=== PATIENT | male | born 1965 ===

== ENCOUNTER 2021-06-27 15:14 | Inpatient (IN) ==
[2021-06-27] MEDS ORDERED: GLUCAGON 1 MG VIAL IM PRN (18:48)
[2021-06-27] MEDS ORDERED: ONDANSETRON 4 MG/2 ML VIAL IV PRN (18:48)
[2021-06-27] MEDS ORDERED: DEXTROSE 50% 25 GM/50 ML VIAL IV PRN (18:48)
[2021-06-27] MEDS ORDERED: LORazepam 2 MG/1 ML VIAL IV PRN (18:48)
[2021-06-27] MEDS ORDERED: MAGNESIUM SULF RIDER 4 GM/100 ML PREMIX IV PRN (18:55)
[2021-06-27] MEDS ORDERED: MAGNESIUM SULF RIDER 2 GM/50 ML PREMIX IV PRN (18:55)
[2021-06-27] MEDS: FUROSEMIDE 40 MG/4 ML VIAL IV SCH (20:21)
[2021-06-27] MEDS: INSULIN LISPRO 100 UNIT/ML SUBCUT SCH (22:11)
[2021-06-27] MEDS ORDERED: ALBUTEROL/IPRATROPIUM 3 ML NEB RESP TX ONE (23:22)
[2021-06-28] MEDS: ALBUTEROL/IPRATROPIUM 3 ML NEB RESP TX SCH ×4 (00:46→19:40)
[2021-06-28 05:42] LABS: Basophils % 0.6 % (0.0-0.8); Eosinophils # 0.2 10*3/uL (0.0-0.87); Eosinophils % 3.3 % (0.00-10.9); Hematocrit 26.4 VOL% (42.0-52.0); Hemoglobin 9.2 GM/DL (14.0-18.0); Immature Granulocytes % 0.6 %; Immature Granulocytes Absolute 0.03 #; Lymphocytes % 20.4 % (21.2-54.2); Mean Corpuscular HGB Conc 34.8 GM/DL (32-36); Mean Corpuscular Volume 97.1 FL (87-102); Mean Platelet Volume 8.6 FL (9.6-12.0); Monocytes % 11.7 % (1.7-12.7); Neutrophils % 63.4 % (38.7-73.9); Platelet Count 135 T/CUMM (130-400); Red Blood Count 2.72 MC/CUMM (3.8-5.5); Red Cell Distribution Width 18.5 % (9.3-17.3); White Blood Count 5.1 T/CUMM (4-12)
[2021-06-28 06:15] LABS: Eosinophils 3 % (0-10); Lymphocytes 7 % (20-55); Platelet Estimate Normal; Segmented Neutrophils 84 % (50-85); Total Cells Counted 100
[2021-06-28 06:16] LABS: Hypochromasia Slight; Microcytosis Slight
[2021-06-28 06:30] LABS: Albumin 1.5 G/DL (3.4-5.0); Bilirubin,Direct 2.34 MG/DL (0.0-0.20); Bilirubin,Indirect 3.5 MG/DL (0.0-1.0); Bilirubin,Total 5.8 MG/DL (0.20-1.00); Total Protein 5.8 G/DL (6.4-8.2)
[2021-06-28 06:38] LABS: Albumin 1.5 G/DL (3.4-5.0); Bilirubin,Total 4.6 MG/DL (0.20-1.00); Calcium 7.6 MG/DL (8.5-10.1); Osmolality,Calculated 257.8 MOS/KG (273-304); Potassium 3.5 MMOL/L (3.5-5.1); Total Protein 5.7 G/DL (6.4-8.2)
[2021-06-28 07:55] LABS: INR 1.3; PT Patient Result 14.6 SECS (10.5-12.0)
[2021-06-28] MEDS: INSULIN LISPRO 100 UNIT/ML SUBCUT SCH ×4 (08:11→20:20)
[2021-06-28] MEDS ORDERED: TISSUE ADHESIVE 1 EACH APPLICATOR TOP ONE (10:21)
[2021-06-28] MEDS: MULTIVITAMIN (CENTRUM) TABLET PO SCH (10:44)
[2021-06-28] MEDS: PANTOPRAZOLE 40 MG TABLET PO SCH (10:44)
[2021-06-28] MEDS: THIAMINE 100 MG TABLET PO SCH (10:44)
[2021-06-28] MEDS: FUROSEMIDE 40 MG/4 ML VIAL IV SCH ×2 (10:44→16:39)
[2021-06-28] MEDS: FOLIC ACID 1 MG TABLET PO SCH (10:44)
[2021-06-28 13:10] LABS: Neutrophils,Peritoneal Fluid 11 %; RBC,Peritoneal Fluid 10 T/CUMM
[2021-06-28 13:45] LABS: Basophils # 0.1 10*3/uL (0.0-0.2); Basophils % 0.8 % (0.0-0.8); Eosinophils # 0.1 10*3/uL (0.0-0.87); Eosinophils % 1.9 % (0.00-10.9); Hematocrit 32.5 VOL% (42.0-52.0); Hemoglobin 11.2 GM/DL (14.0-18.0); Immature Granulocytes % 0.3 %; Immature Granulocytes Absolute 0.02 #; Lymphocytes # 1.1 10*3/uL (1.4-4.0); Lymphocytes % 17.1 % (21.2-54.2); Mean Corpuscular HGB Conc 34.5 GM/DL (32-36); Mean Corpuscular Volume 98.5 FL (87-102); Mean Platelet Volume 8.4 FL (9.6-12.0); Monocytes % 10.1 % (1.7-12.7); Neutrophils % 69.8 % (38.7-73.9); Platelet Count 167 T/CUMM (130-400); Red Cell Distribution Width 18.5 % (9.3-17.3); White Blood Count 6.4 T/CUMM (4-12)
[2021-06-28 14:11] LABS: Folate 14.28 NG/ML (5.38-24.0); Vitamin B12 1182 PG/ML (211-911)
[2021-06-28 14:46] LABS: Hepatitis B Core IgM Quant 0.07 Index; Hepatitis B Surface Ag Quant < 0.10 Index; Hepatitis B Surface Ag Result Non-Reactive (NonReactive); Hepatitis C Virus Ab Quant 0.16 Index; Hepatitis C Virus Ab Result Non-Reactive (NonReactive)
[2021-06-28 14:55] LABS: Sedimentation Rate-Westergren 90 MM/HR (0-20)
[2021-06-28] MEDS: LACTULOSE 20 GM/30 ML UDCUP PO SCH ×2 (16:40→20:48)
[2021-06-29] MEDS: ALBUTEROL/IPRATROPIUM 3 ML NEB RESP TX SCH ×2 (00:32→07:34)
[2021-06-29 05:21] LABS: Basophils % 0.7 % (0.0-0.8); Eosinophils # 0.2 10*3/uL (0.0-0.87); Hematocrit 24.6 VOL% (42.0-52.0); Immature Granulocytes % 0.7 %; Immature Granulocytes Absolute 0.03 #; Lymphocytes # 1.1 10*3/uL (1.4-4.0); Lymphocytes % 26.6 % (21.2-54.2); Mean Corpuscular HGB Conc 34.1 GM/DL (32-36); Mean Corpuscular Volume 97.6 FL (87-102); Mean Platelet Volume 8.4 FL (9.6-12.0); Monocytes % 13.8 % (1.7-12.7); Neutrophils % 54.2 % (38.7-73.9); Red Cell Distribution Width 18.5 % (9.3-17.3)
[2021-06-29 05:36] LABS: Hemoglobin 8.4 GM/DL (14.0-18.0); Platelet Count 126 T/CUMM (130-400); Red Blood Count 2.52 MC/CUMM (3.8-5.5); White Blood Count 4.3 T/CUMM (4-12)
[2021-06-29 05:50] LABS: Hypochromasia 1+; Microcytosis 1+; Platelet Estimate Normal
[2021-06-29 05:55] LABS: Albumin 1.3 G/DL (3.4-5.0); Bilirubin,Total 2.8 MG/DL (0.20-1.00); Calcium 7.3 MG/DL (8.5-10.1); Potassium 3.3 MMOL/L (3.5-5.1); Total Protein 5.4 G/DL (6.4-8.2)
[2021-06-29] MEDS: FOLIC ACID 1 MG TABLET PO SCH (08:58)
[2021-06-29] MEDS: THIAMINE 100 MG TABLET PO SCH (08:58)
[2021-06-29] MEDS: LACTULOSE 20 GM/30 ML UDCUP PO SCH ×2 (08:58→20:39)
[2021-06-29] MEDS: PANTOPRAZOLE 40 MG TABLET PO SCH (08:58)
[2021-06-29] MEDS: MULTIVITAMIN (CENTRUM) TABLET PO SCH (08:58)
[2021-06-29] MEDS: INSULIN LISPRO 100 UNIT/ML SUBCUT SCH ×4 (09:00→20:39)
[2021-06-29] MEDS: FUROSEMIDE 40 MG/4 ML VIAL IV SCH (09:03)
[2021-06-29 09:43] LABS: Hemoglobin A1 (Alkaline) 97.1 % (96.5-98.5); Hemoglobin A2 (Alkaline) 2.9 % (1.5-3.5)
[2021-06-29] MEDS: SPIRONOLACTONE 50 MG TABLET PO SCH (11:07)
[2021-06-29] MEDS: POTASSIUM CHLORIDE 20 MEQ TABLET PO PRN ×3 (18:39→22:35)
[2021-06-30] MEDS: ALBUTEROL/IPRATROPIUM 3 ML NEB RESP TX SCH ×4 (07:33→19:19)
[2021-06-30] MEDS: LACTULOSE 20 GM/30 ML UDCUP PO SCH ×2 (09:05→21:02)
[2021-06-30] MEDS: PANTOPRAZOLE 40 MG TABLET PO SCH (09:05)
[2021-06-30] MEDS: MULTIVITAMIN (CENTRUM) TABLET PO SCH (09:05)
[2021-06-30] MEDS: INSULIN LISPRO 100 UNIT/ML SUBCUT SCH ×4 (09:05→21:01)
[2021-06-30] MEDS: FOLIC ACID 1 MG TABLET PO SCH (09:05)
[2021-06-30] MEDS: SPIRONOLACTONE 50 MG TABLET PO SCH (09:05)
[2021-06-30] MEDS: THIAMINE 100 MG TABLET PO SCH (09:06)
[2021-06-30] MEDS: FUROSEMIDE 40 MG/4 ML VIAL IV SCH (10:18)
[2021-06-30 10:23] LABS: Basophils % 0.5 % (0.0-0.8); Eosinophils # 0.1 10*3/uL (0.0-0.87); Hematocrit 28.3 VOL% (42.0-52.0); Hemoglobin 9.8 GM/DL (14.0-18.0); Immature Granulocytes % 0.5 %; Immature Granulocytes Absolute 0.03 #; Lymphocytes # 0.9 10*3/uL (1.4-4.0); Lymphocytes % 16.5 % (21.2-54.2); Mean Corpuscular HGB Conc 34.6 GM/DL (32-36); Mean Corpuscular Volume 96.9 FL (87-102); Mean Platelet Volume 8.4 FL (9.6-12.0); Monocytes % 10.1 % (1.7-12.7); Neutrophils % 70.4 % (38.7-73.9); Platelet Count 141 T/CUMM (130-400); Red Blood Count 2.92 MC/CUMM (3.8-5.5); Red Cell Distribution Width 18.4 % (9.3-17.3); White Blood Count 5.6 T/CUMM (4-12)
[2021-06-30 10:43] LABS: Calcium 7.7 MG/DL (8.5-10.1); Osmolality,Calculated 260.7 MOS/KG (273-304); Potassium 3.3 MMOL/L (3.5-5.1)
[2021-06-30] MEDS: POTASSIUM CHLORIDE 20 MEQ TABLET PO PRN (11:28)
[2021-06-30] MEDS: LACTATED RINGERS 1,000 ML IV SCH (12:48)
[2021-06-30] MEDS ORDERED: propofoL 200 MG/20 ML VIAL IV ONE (13:44)
[2021-06-30] MEDS ORDERED: LIDOCAINE 2% 5 ML VIAL ONE (13:44)
[2021-07-01] MEDS: ALBUTEROL/IPRATROPIUM 3 ML NEB RESP TX SCH ×3 (01:15→14:10)
[2021-07-01 06:16] LABS: Basophils % 0.7 % (0.0-0.8); Eosinophils # 0.2 10*3/uL (0.0-0.87); Eosinophils % 2.4 % (0.00-10.9); Hematocrit 26.7 VOL% (42.0-52.0); Hemoglobin 9.2 GM/DL (14.0-18.0); Immature Granulocytes % 0.3 %; Immature Granulocytes Absolute 0.02 #; Lymphocytes # 1.1 10*3/uL (1.4-4.0); Lymphocytes % 18.4 % (21.2-54.2); Mean Corpuscular HGB Conc 34.5 GM/DL (32-36); Mean Corpuscular Volume 99.6 FL (87-102); Mean Platelet Volume 8.9 FL (9.6-12.0); Monocytes % 10.4 % (1.7-12.7); Neutrophils % 67.8 % (38.7-73.9); Platelet Count 153 T/CUMM (130-400); Red Blood Count 2.68 MC/CUMM (3.8-5.5); Red Cell Distribution Width 18.6 % (9.3-17.3); White Blood Count 6.1 T/CUMM (4-12)
[2021-07-01 06:36] LABS: Albumin 1.4 G/DL (3.4-5.0); Bilirubin,Total 3.5 MG/DL (0.20-1.00); Calcium 7.3 MG/DL (8.5-10.1); Osmolality,Calculated 265.2 MOS/KG (273-304); Potassium 2.9 MMOL/L (3.5-5.1); Total Protein 5.7 G/DL (6.4-8.2)
[2021-07-01] MEDS: POTASSIUM CHLORIDE 20 MEQ TABLET PO PRN ×3 (08:11→12:25)
[2021-07-01] MEDS: THIAMINE 100 MG TABLET PO SCH (08:11)
[2021-07-01] MEDS: LACTULOSE 20 GM/30 ML UDCUP PO SCH (08:11)
[2021-07-01] MEDS: FOLIC ACID 1 MG TABLET PO SCH (08:11)
[2021-07-01] MEDS: SPIRONOLACTONE 50 MG TABLET PO SCH (08:11)
[2021-07-01] MEDS: FUROSEMIDE 40 MG/4 ML VIAL IV SCH (08:12)
[2021-07-01] MEDS: PANTOPRAZOLE 40 MG TABLET PO SCH (08:12)
[2021-07-01] MEDS: MULTIVITAMIN (CENTRUM) TABLET PO SCH (08:12)
[2021-07-01] MEDS: INSULIN LISPRO 100 UNIT/ML SUBCUT SCH ×2 (08:13→12:02)
[2021-07-01] MEDS: LACTATED RINGERS 1,000 ML IV SCH (11:30)
[2021-07-01 11:59] VITALS: BP 118/62
== END 2021-07-01 15:40 | disposition home or self-care (01) | DRG 433 ==
LOC: EDUNIT# → EDBD → N.ED 15:14 → N.EDINP 18:48 → SUATTDRO 18:48 → N.TELEN 21:21 → N.3E 06-29 11:33
PROVIDERS: ADMIT Phlebology; ATTEND Internal Medicine Geriatric Medicine

== ENCOUNTER 2021-07-31 07:50 | Inpatient (IN) ==
[2021-07-31] MEDS ORDERED: INFLUENZA VIRUS VACCINE 0.5 ML SYRINGE IM ONE (11:19)
[2021-07-31] MEDS ORDERED: DEXTROSE 50% 25 GM/50 ML VIAL IV PRN (11:33)
[2021-07-31] MEDS ORDERED: hydrALAZINE 20 MG/1 ML VIAL IV PRN (11:33)
[2021-07-31] MEDS ORDERED: ONDANSETRON 4 MG/2 ML VIAL IV PRN (11:33)
[2021-07-31] MEDS ORDERED: GLUCAGON 1 MG VIAL IM PRN (11:33)
[2021-07-31] MEDS ORDERED: SODIUM CHLORIDE 0.9% 1,000 ML IV SCH ×2 (12:00)
[2021-07-31] MEDS: LACTULOSE 20 GM/30 ML UDCUP PO SCH ×3 (12:16→20:21)
[2021-07-31 12:17] LABS: Basophils % 0.6 % (0.0-0.8); Eosinophils # 0.1 10*3/uL (0.0-0.87); Eosinophils % 3.4 % (0.00-10.9); Hematocrit 24.4 VOL% (42.0-52.0); Hemoglobin 8.3 GM/DL (14.0-18.0); Lymphocytes # 1.1 10*3/uL (1.4-4.0); Lymphocytes % 31.8 % (21.2-54.2); Mean Corpuscular Volume 94.6 FL (87-102); Mean Platelet Volume 8.5 FL (9.6-12.0); Monocytes % 12.8 % (1.7-12.7); Neutrophils % 51.4 % (38.7-73.9); Platelet Count 132 T/CUMM (130-400); Red Blood Count 2.58 MC/CUMM (3.8-5.5); Red Cell Distribution Width 15.3 % (9.3-17.3); White Blood Count 3.6 T/CUMM (4-12)
[2021-07-31 12:45] LABS: Albumin 1.6 G/DL (3.4-5.0); Bilirubin,Direct 0.98 MG/DL (0.0-0.20); Bilirubin,Indirect 0.8 MG/DL (0.0-1.0); Bilirubin,Total 1.8 MG/DL (0.20-1.00); Total Protein 6.4 G/DL (6.4-8.2)
[2021-07-31 12:49] LABS: Albumin 1.6 G/DL (3.4-5.0); Bilirubin,Total 1.8 MG/DL (0.20-1.00); Calcium 7.6 MG/DL (8.5-10.1); Potassium 3.7 MMOL/L (3.5-5.1); Total Protein 6.3 G/DL (6.4-8.2)
[2021-07-31 13:22] LABS: Bilirubin,Urine Negative (Negative); Blood, Urine Moderate mg/dL (Negative); Glucose,Urine (UA) Negative (Negative); Hyaline Casts,Urine 4 /LPF (0-3); Ketones,Urine Negative (Negative); Mucus,Urine Occasional /LPF (Occasional); Nitrite,Urine Negative (Negative); Protein,Urine 30 MG/DL; RBC,Urine 83 /HPF (0-4); Urine Appearance CLEAR (Clear); Urine Color Amber (Yellow); Urine Specific Gravity 1.025 (1.001-1.035); Urine Urobilinogen < 2.0 EU/DL (0.2-1.0)
[2021-07-31] MEDS: ALBUTEROL/IPRATROPIUM 3 ML NEB RESP TX SCH ×2 (13:40→20:21)
[2021-07-31] MEDS: metroNIDAZOLE INJ 500 MG/100 ML PREMIX IV SCH ×2 (13:46→20:21)
[2021-08-01] MEDS: LACTULOSE 20 GM/30 ML UDCUP PO SCH ×6 (00:35→21:11)
[2021-08-01] MEDS: ALBUTEROL/IPRATROPIUM 3 ML NEB RESP TX SCH ×4 (01:45→18:59)
[2021-08-01] MEDS: metroNIDAZOLE INJ 500 MG/100 ML PREMIX IV SCH ×3 (05:42→21:12)
[2021-08-01 05:56] LABS: Basophils % 0.6 % (0.0-0.8); Eosinophils # 0.2 10*3/uL (0.0-0.87); Eosinophils % 3.5 % (0.00-10.9); Hematocrit 26.2 VOL% (42.0-52.0); Immature Granulocytes % 0.2 %; Immature Granulocytes Absolute 0.01 #; Lymphocytes # 2.1 10*3/uL (1.4-4.0); Mean Corpuscular HGB Conc 34.4 GM/DL (32-36); Mean Corpuscular Volume 94.2 FL (87-102); Mean Platelet Volume 8.7 FL (9.6-12.0); Monocytes % 10.1 % (1.7-12.7); Neutrophils % 45.6 % (38.7-73.9); Platelet Count 179 T/CUMM (130-400); Red Blood Count 2.78 MC/CUMM (3.8-5.5); Red Cell Distribution Width 15.1 % (9.3-17.3); White Blood Count 5.1 T/CUMM (4-12)
[2021-08-01 06:01] LABS: INR 1.3; PT Patient Result 14.6 SECS (10.5-12.0); Partial Thromboplastin Time 43.5 SECS (23.9-33.8)
[2021-08-01 06:09] LABS: Calcium 8.1 MG/DL (8.5-10.1); Osmolality,Calculated 274.7 MOS/KG (273-304); Potassium 3.9 MMOL/L (3.5-5.1)
[2021-08-01] MEDS: THIAMINE 100 MG TABLET PO SCH (09:23)
[2021-08-01] MEDS: FOLIC ACID 1 MG TABLET PO SCH (09:23)
[2021-08-01] MEDS: MULTIVITAMIN (CENTRUM) TABLET PO SCH (09:23)
[2021-08-01] MEDS: PANTOPRAZOLE 40 MG VIAL IV SCH (09:25)
[2021-08-01] MEDS: RIFAXIMIN 550 MG TABLET PO SCH (21:11)
[2021-08-02] MEDS: LACTULOSE 20 GM/30 ML UDCUP PO SCH ×7 (00:26→21:19)
[2021-08-02] MEDS: ALBUTEROL/IPRATROPIUM 3 ML NEB RESP TX SCH ×4 (00:38→19:11)
[2021-08-02] MEDS: metroNIDAZOLE INJ 500 MG/100 ML PREMIX IV SCH (06:10)
[2021-08-02 06:14] LABS: Basophils % 0.5 % (0.0-0.8); Eosinophils # 0.2 10*3/uL (0.0-0.87); Eosinophils % 3.8 % (0.00-10.9); Hematocrit 22.9 VOL% (42.0-52.0); Hemoglobin 7.8 GM/DL (14.0-18.0); Immature Granulocytes % 0.3 %; Immature Granulocytes Absolute 0.01 #; Lymphocytes # 1.2 10*3/uL (1.4-4.0); Lymphocytes % 30.3 % (21.2-54.2); Mean Corpuscular HGB Conc 34.1 GM/DL (32-36); Mean Corpuscular Volume 93.9 FL (87-102); Mean Platelet Volume 8.5 FL (9.6-12.0); Monocytes % 12.3 % (1.7-12.7); Neutrophils % 52.8 % (38.7-73.9); Platelet Count 134 T/CUMM (130-400); Red Blood Count 2.44 MC/CUMM (3.8-5.5); Red Cell Distribution Width 15.2 % (9.3-17.3); White Blood Count 3.9 T/CUMM (4-12)
[2021-08-02 06:30] LABS: Calcium 7.6 MG/DL (8.5-10.1); Osmolality,Calculated 268.1 MOS/KG (273-304); Potassium 3.2 MMOL/L (3.5-5.1)
[2021-08-02] MEDS ORDERED: POTASSIUM CHLORIDE RIDER 20 MEQ/100 ML PREMIX IV PRN (08:05)
[2021-08-02] MEDS: THIAMINE 100 MG TABLET PO SCH (10:40)
[2021-08-02] MEDS: FUROSEMIDE 20 MG TABLET PO SCH (10:40)
[2021-08-02] MEDS: SPIRONOLACTONE 50 MG TABLET PO SCH (10:40)
[2021-08-02] MEDS: MULTIVITAMIN (CENTRUM) TABLET PO SCH (10:40)
[2021-08-02] MEDS: MONTELUKAST 10 MG TABLET PO SCH (10:40)
[2021-08-02] MEDS: RIFAXIMIN 550 MG TABLET PO SCH ×2 (10:40→21:19)
[2021-08-02] MEDS: FOLIC ACID 1 MG TABLET PO SCH (10:41)
[2021-08-02] MEDS: POTASSIUM CHLORIDE RIDER 10 MEQ/100 ML PREMIX IV PRN ×4 (10:41→21:19)
[2021-08-02] MEDS: PANTOPRAZOLE 40 MG VIAL IV SCH (10:41)
[2021-08-03] MEDS: ALBUTEROL/IPRATROPIUM 3 ML NEB RESP TX SCH ×4 (00:32→19:25)
[2021-08-03] MEDS: LACTULOSE 20 GM/30 ML UDCUP PO SCH ×5 (00:50→16:26)
[2021-08-03] MEDS: PANTOPRAZOLE 40 MG TABLET PO SCH (05:35)
[2021-08-03] MEDS: SPIRONOLACTONE 50 MG TABLET PO SCH (08:13)
[2021-08-03] MEDS: FOLIC ACID 1 MG TABLET PO SCH (08:13)
[2021-08-03] MEDS: THIAMINE 100 MG TABLET PO SCH (08:13)
[2021-08-03] MEDS: MULTIVITAMIN (CENTRUM) TABLET PO SCH (08:13)
[2021-08-03] MEDS: FUROSEMIDE 20 MG TABLET PO SCH (08:13)
[2021-08-03] MEDS: RIFAXIMIN 550 MG TABLET PO SCH ×2 (08:14→22:30)
[2021-08-03] MEDS: MONTELUKAST 10 MG TABLET PO SCH (08:14)
[2021-08-03 09:14] LABS: Albumin 1.4 G/DL (3.4-5.0); Bilirubin,Total 1.7 MG/DL (0.20-1.00); Calcium 7.3 MG/DL (8.5-10.1); Total Protein 5.8 G/DL (6.4-8.2)
[2021-08-03 09:19] LABS: Basophils % 0.4 % (0.0-0.8); Eosinophils # 0.1 10*3/uL (0.0-0.87); Eosinophils % 1.1 % (0.00-10.9); Hematocrit 22.4 VOL% (42.0-52.0); Hemoglobin 7.7 GM/DL (14.0-18.0); Immature Granulocytes % 0.4 %; Immature Granulocytes Absolute 0.02 #; Lymphocytes # 1.5 10*3/uL (1.4-4.0); Lymphocytes % 27.9 % (21.2-54.2); Mean Corpuscular HGB Conc 34.4 GM/DL (32-36); Mean Corpuscular Volume 95.3 FL (87-102); Neutrophils % 59.2 % (38.7-73.9); Platelet Count 124 T/CUMM (130-400); Red Blood Count 2.35 MC/CUMM (3.8-5.5); Red Cell Distribution Width 15.2 % (9.3-17.3); White Blood Count 5.3 T/CUMM (4-12)
[2021-08-03 09:47] LABS: Target Cells Slight
[2021-08-03 09:49] LABS: Platelet Estimate Adequate
[2021-08-03] MEDS: LEVOFLOXACIN INJ 500 MG/100 ML PREMIX IV SCH (12:10)
[2021-08-03] MEDS ORDERED: LACTULOSE 20 GM/30 ML UDCUP PO SCH (21:00)
[2021-08-04] MEDS: ALBUTEROL/IPRATROPIUM 3 ML NEB RESP TX SCH ×3 (01:00→13:03)
[2021-08-04 05:25] LABS: Basophils % 0.5 % (0.0-0.8); Eosinophils # 0.2 10*3/uL (0.0-0.87); Eosinophils % 4.1 % (0.00-10.9); Hematocrit 21.4 VOL% (42.0-52.0); Hemoglobin 7.3 GM/DL (14.0-18.0); Immature Granulocytes % 0.5 %; Immature Granulocytes Absolute 0.02 #; Lymphocytes # 1.1 10*3/uL (1.4-4.0); Lymphocytes % 25.7 % (21.2-54.2); Mean Corpuscular HGB Conc 34.1 GM/DL (32-36); Mean Corpuscular Volume 93.4 FL (87-102); Mean Platelet Volume 8.5 FL (9.6-12.0); Monocytes % 11.6 % (1.7-12.7); Neutrophils % 57.6 % (38.7-73.9); Platelet Count 117 T/CUMM (130-400); Red Blood Count 2.29 MC/CUMM (3.8-5.5); White Blood Count 4.1 T/CUMM (4-12)
[2021-08-04 05:41] LABS: Albumin 1.3 G/DL (3.4-5.0); Bilirubin,Total 1.4 MG/DL (0.20-1.00); Calcium 7.1 MG/DL (8.5-10.1); Osmolality,Calculated 267.1 MOS/KG (273-304); Potassium 3.6 MMOL/L (3.5-5.1); Total Protein 5.4 G/DL (6.4-8.2)
[2021-08-04] MEDS: PANTOPRAZOLE 40 MG TABLET PO SCH (06:26)
[2021-08-04] MEDS: SPIRONOLACTONE 50 MG TABLET PO SCH (08:40)
[2021-08-04] MEDS: MULTIVITAMIN (CENTRUM) TABLET PO SCH (08:41)
[2021-08-04] MEDS: RIFAXIMIN 550 MG TABLET PO SCH (08:42)
[2021-08-04] MEDS: MONTELUKAST 10 MG TABLET PO SCH (08:42)
[2021-08-04] MEDS: THIAMINE 100 MG TABLET PO SCH (08:43)
[2021-08-04] MEDS: FOLIC ACID 1 MG TABLET PO SCH (08:43)
[2021-08-04] MEDS: FUROSEMIDE 20 MG TABLET PO SCH (08:44)
[2021-08-04 08:51] LABS: INR 1.5; PT Patient Result 15.8 SECS (10.5-12.0)
[2021-08-04] MEDS ORDERED: LACTULOSE 20 GM/30 ML UDCUP PO SCH (09:00)
[2021-08-04 09:39] LABS: Partial Thromboplastin Time 45.2 SECS (23.9-33.8)
[2021-08-04 11:03] VITALS: BP 116/62
[2021-08-04] MEDS: LEVOFLOXACIN INJ 500 MG/100 ML PREMIX IV SCH (11:47)
== END 2021-08-04 15:47 | disposition home or self-care (01) | DRG 432 ==
LOC: N.5E 10:33 → SUATTDRO 10:33 → N.5E 11:20
PROVIDERS: ADMIT Internal Medicine; ATTEND Hospitalist

== ENCOUNTER 2022-01-16 06:02 | Inpatient (IN) ==
[2022-01-16 07:19] LABS: INR 1.2; Partial Thromboplastin Time 33.6 SECS (23.8-32.1)
[2022-01-16] MEDS ORDERED: HYDROmorphone 1 MG/1 ML SYRINGE IV STA (08:59)
[2022-01-16] MEDS ORDERED: ALUMINUM/MAGNES/SIMETH MAX STR 30 ML UDCUP PO PRN (09:03)
[2022-01-16] MEDS ORDERED: GLUCAGON 1 MG VIAL IM PRN (09:03)
[2022-01-16] MEDS ORDERED: hydrALAZINE 20 MG/1 ML VIAL IV PRN (09:03)
[2022-01-16] MEDS ORDERED: DOCUSATE SODIUM 100 MG CAPSULE PO PRN (09:03)
[2022-01-16] MEDS ORDERED: DEXTROSE 10% 250 ML BAG IV PRN (09:10)
[2022-01-16] MEDS ORDERED: LACTULOSE 20 GM/30 ML UDCUP PO PRN (09:13)
[2022-01-16] MEDS ORDERED: POLYVINYL ALCOHOL 1.4% OPH SOLN 15 ML BOTTLE BOTH EYES PRN (09:13)
[2022-01-16] MEDS ORDERED: ALBUTEROL 2.5 MG/3 ML NEB RESP TX PRN (09:13)
[2022-01-16] MEDS ORDERED: MIDAZOLAM 2 MG/2 ML VIAL ONE (09:30)
[2022-01-16] MEDS ORDERED: SEVOFLURANE 1 UNIT/15 MINUTE INH ONE (09:30)
[2022-01-16] MEDS ORDERED: propofoL 200 MG/20 ML VIAL IV ONE (09:30)
[2022-01-16] MEDS ORDERED: LIDOCAINE 2% 5 ML VIAL ONE (09:30)
[2022-01-16] MEDS ORDERED: fentaNYL 250 MCG/5 ML VIAL ONE (09:30)
[2022-01-16] MEDS ORDERED: HYDROmorphone 1 MG/1 ML SYRINGE IV ONE (09:30)
[2022-01-16] MEDS ORDERED: ROCURONIUM 50 MG/5 ML VIAL IV ONE ×2 (09:30→09:46)
[2022-01-16] MEDS ORDERED: SUCCINYLCHOLINE 200 MG/10 ML VIAL ONE ×2 (09:30→09:46)
[2022-01-16] MEDS ORDERED: LIDOCAINE 1% 5 ML VIAL ONE (09:46)
[2022-01-16] MEDS ORDERED: ROPIVACAINE 0.5% 30 ML VIAL ONE (09:46)
[2022-01-16] MEDS ORDERED: DEXAMETHASONE 4 MG/1 ML VIAL ONE (09:46)
[2022-01-16] MEDS ORDERED: BUPIVACAINE MPF 0.25% 30 ML VIAL ONE (09:56)
[2022-01-16] MEDS ORDERED: TISSUE ADHESIVE 1 EACH APPLICATOR TOP ONE (09:56)
[2022-01-16] MEDS ORDERED: LIDOCAINE 1%/EPI INJ 20 ML VIAL ONE (09:57)
[2022-01-16] MEDS ORDERED: LACTATED RINGERS 1,000 ML IV SCH (10:30)
[2022-01-16] MEDS ORDERED: PHENYLEPHRINE 1 MG/10 ML SYRINGE IV ONE (11:14)
[2022-01-16] MEDS ORDERED: NEOSTIGMINE 10 MG/10 ML VIAL ONE (11:25)
[2022-01-16] MEDS ORDERED: GLYCOPYRROLATE 0.4 MG/2 ML VIAL ONE (11:25)
[2022-01-16] MEDS ORDERED: LACTATED RINGERS 1,000 ML IV ONE (11:28)
[2022-01-16] MEDS ORDERED: SUGAMMADEX 200 MG/2 ML VIAL IV ONE (11:40)
[2022-01-16] MEDS ORDERED: HYDROmorphone 1 MG/1 ML SYRINGE IV PRN (12:34)
[2022-01-16] MEDS ORDERED: BISACODYL 5 MG TABLET PO PRN (12:34)
[2022-01-16] MEDS: INSULIN LISPRO 100 UNIT/ML SUBCUT SCH ×3 (13:33→20:40)
[2022-01-16] MEDS: LACTATED RINGERS 1,000 ML IV SCH ×2 (13:49→18:27)
[2022-01-16] MEDS: KETOROLAC 15 MG/1 ML VIAL IV SCH ×2 (13:49→20:39)
[2022-01-17] MEDS: LACTATED RINGERS 1,000 ML IV SCH ×4 (02:25→21:15)
[2022-01-17] MEDS: KETOROLAC 15 MG/1 ML VIAL IV SCH ×4 (02:30→21:24)
[2022-01-17 05:42] LABS: Basophils % 0.1 % (0.0-0.8); Eosinophils % 0.1 % (0.00-10.9); Hematocrit 21.1 VOL% (42.0-52.0); Hemoglobin 6.5 GM/DL (14.0-18.0); Immature Granulocytes % 0.3 %; Immature Granulocytes Absolute 0.02 #; Lymphocytes % 13.7 % (21.2-54.2); Mean Corpuscular HGB Conc 30.8 GM/DL (32-36); Mean Corpuscular Volume 80.2 FL (87-102); Mean Platelet Volume 8.6 FL (9.6-12.0); Monocytes % 7.5 % (1.7-12.7); Neutrophils % 78.3 % (38.7-73.9); Platelet Count 176 T/CUMM (130-400); Red Blood Count 2.63 MC/CUMM (3.8-5.5); Red Cell Distribution Width 15.9 % (9.3-17.3); White Blood Count 7.2 T/CUMM (4-12)
[2022-01-17 06:04] LABS: Risk Ratio 2.21; VLDL Cholesterol 7.6 MG/DL
[2022-01-17 06:35] LABS: Albumin 2.4 G/DL (3.4-5.0); Bilirubin,Total 0.9 MG/DL (0.20-1.00); Calcium 7.6 MG/DL (8.5-10.1); Osmolality,Calculated 275.7 MOS/KG (273-304); Potassium 3.6 MMOL/L (3.5-5.1); Total Protein 6.4 G/DL (6.4-8.2)
[2022-01-17] MEDS: INSULIN LISPRO 100 UNIT/ML SUBCUT SCH ×4 (07:26→21:12)
[2022-01-17] MEDS: SPIRONOLACTONE 50 MG TABLET PO SCH (08:28)
[2022-01-17] MEDS: METOPROLOL TARTRATE 25 MG TABLET PO SCH (08:28)
[2022-01-17] MEDS: MONTELUKAST 10 MG TABLET PO SCH (08:28)
[2022-01-17] MEDS: FUROSEMIDE 20 MG TABLET PO SCH (08:28)
[2022-01-17] MEDS: MULTIVITAMIN (CENTRUM) TABLET PO SCH (08:28)
[2022-01-17] MEDS: lisinopriL 10 MG TABLET PO SCH (08:28)
[2022-01-17] MEDS ORDERED: SODIUM CHLORIDE 0.9% 1,000 ML IV PRN (08:49)
[2022-01-17] MEDS ORDERED: PANTOPRAZOLE 40 MG TABLET PO SCH (09:00)
[2022-01-17] MEDS ORDERED: FUROSEMIDE 40 MG/4 ML VIAL IV PRN (12:48)
[2022-01-17 13:10] LABS: % Iron Saturation 5.3 % (18-50); Ferritin 10.5 ng/mL (26-388)
[2022-01-17] MEDS: ONDANSETRON 4 MG/2 ML VIAL IV PRN (21:27)
[2022-01-18] MEDS: LACTATED RINGERS 1,000 ML IV SCH ×2 (02:08→14:40)
[2022-01-18] MEDS: ONDANSETRON 4 MG/2 ML VIAL IV PRN (02:13)
[2022-01-18] MEDS: KETOROLAC 15 MG/1 ML VIAL IV SCH (02:16)
[2022-01-18 04:52] LABS: Basophils % 0.3 % (0.0-0.8); Eosinophils % 0.6 % (0.00-10.9); Hematocrit 28.6 VOL% (42.0-52.0); Hemoglobin 8.9 GM/DL (14.0-18.0); Immature Granulocytes % 0.6 %; Immature Granulocytes Absolute 0.02 #; Lymphocytes # 0.5 10*3/uL (1.4-4.0); Lymphocytes % 16.1 % (21.2-54.2); Mean Corpuscular HGB Conc 31.1 GM/DL (32-36); Mean Corpuscular Volume 82.9 FL (87-102); Mean Platelet Volume 9.1 FL (9.6-12.0); Monocytes % 19.3 % (1.7-12.7); Neutrophils % 63.1 % (38.7-73.9); Platelet Count 154 T/CUMM (130-400); Red Blood Count 3.45 MC/CUMM (3.8-5.5); Red Cell Distribution Width 16.3 % (9.3-17.3); White Blood Count 3.2 T/CUMM (4-12)
[2022-01-18 05:00] LABS: Calcium 8.1 MG/DL (8.5-10.1); Osmolality,Calculated 278.8 MOS/KG (273-304); Potassium 3.8 MMOL/L (3.5-5.1)
[2022-01-18 05:08] LABS: Band Neutrophils 8 % (0-10); Hypochromia 1+; Lymphocytes 19 % (20-55); Nucleated Red Blood Cells 1 (0-5); Segmented Neutrophils 58 % (50-85); Total Cells Counted 100
[2022-01-18 05:09] LABS: Microcytosis 1+; Platelet Estimate Adequate; Polychromasia Slight
[2022-01-18] MEDS: INSULIN LISPRO 100 UNIT/ML SUBCUT SCH ×4 (06:48→20:44)
[2022-01-18] MEDS: PANTOPRAZOLE 40 MG VIAL IV SCH (08:12)
[2022-01-18] MEDS: MONTELUKAST 10 MG TABLET PO SCH (08:13)
[2022-01-18] MEDS: MULTIVITAMIN (CENTRUM) TABLET PO SCH (08:13)
[2022-01-18] MEDS: METOPROLOL TARTRATE 25 MG TABLET PO SCH (08:13)
[2022-01-18] MEDS ORDERED: ALBUTEROL/IPRATROPIUM 3 ML NEB RESP TX PRN (08:36)
[2022-01-18] MEDS: FERRIC GLUCONATE COMPLEX 125 MG in SODIUM CHLORIDE 0.9% 100 ML IV SCH (09:53)
[2022-01-19] MEDS: LACTATED RINGERS 1,000 ML IV SCH ×2 (02:55→11:55)
[2022-01-19 07:00] LABS: Calcium 7.6 MG/DL (8.5-10.1); Osmolality,Calculated 281.8 MOS/KG (273-304); Potassium 3.5 MMOL/L (3.5-5.1)
[2022-01-19] MEDS: INSULIN LISPRO 100 UNIT/ML SUBCUT SCH ×4 (07:28→21:27)
[2022-01-19 08:19] LABS: Basophils % 0.4 % (0.0-0.8); Eosinophils # 0.2 10*3/uL (0.0-0.87); Eosinophils % 3.1 % (0.00-10.9); Hematocrit 26.8 VOL% (42.0-52.0); Hemoglobin 8.5 GM/DL (14.0-18.0); Immature Granulocytes % 0.8 %; Immature Granulocytes Absolute 0.04 #; Lymphocytes # 0.9 10*3/uL (1.4-4.0); Lymphocytes % 16.7 % (21.2-54.2); Mean Corpuscular HGB Conc 31.7 GM/DL (32-36); Mean Corpuscular Volume 81.2 FL (87-102); Mean Platelet Volume 9.1 FL (9.6-12.0); Monocytes % 19.8 % (1.7-12.7); Neutrophils % 59.2 % (38.7-73.9); Platelet Count 149 T/CUMM (130-400); Red Cell Distribution Width 16.5 % (9.3-17.3); White Blood Count 5.1 T/CUMM (4-12)
[2022-01-19] MEDS: MULTIVITAMIN (CENTRUM) TABLET PO SCH (08:19)
[2022-01-19] MEDS: PANTOPRAZOLE 40 MG VIAL IV SCH (08:19)
[2022-01-19] MEDS: MONTELUKAST 10 MG TABLET PO SCH (08:19)
[2022-01-19] MEDS: METOPROLOL TARTRATE 25 MG TABLET PO SCH (08:19)
[2022-01-19] MEDS: FERRIC GLUCONATE COMPLEX 125 MG in SODIUM CHLORIDE 0.9% 100 ML IV SCH (08:20)
[2022-01-19 08:38] LABS: Band Neutrophils 3 % (0-10); Eosinophils 4 % (0-10); Hypochromia 1+; Lymphocytes 14 % (20-55); Microcytosis 1+; Platelet Estimate Adequate; Segmented Neutrophils 61 % (50-85); Total Cells Counted 100
[2022-01-19] MEDS: lisinopriL 10 MG TABLET PO SCH (10:49)
[2022-01-19] MEDS: SPIRONOLACTONE 50 MG TABLET PO SCH (10:49)
[2022-01-19] MEDS: FUROSEMIDE 20 MG TABLET PO SCH (10:49)
[2022-01-20] MEDS: LACTATED RINGERS 1,000 ML IV SCH ×2 (04:30→23:18)
[2022-01-20 05:27] LABS: Basophils % 0.5 % (0.0-0.8); Eosinophils # 0.1 10*3/uL (0.0-0.87); Eosinophils % 3.1 % (0.00-10.9); Hematocrit 27.2 VOL% (42.0-52.0); Hemoglobin 8.5 GM/DL (14.0-18.0); Immature Granulocytes % 1.2 %; Immature Granulocytes Absolute 0.05 #; Lymphocytes # 0.8 10*3/uL (1.4-4.0); Lymphocytes % 19.5 % (21.2-54.2); Mean Corpuscular HGB Conc 31.3 GM/DL (32-36); Mean Corpuscular Volume 80.7 FL (87-102); Mean Platelet Volume 8.6 FL (9.6-12.0); Monocytes % 20.7 % (1.7-12.7); Platelet Count 148 T/CUMM (130-400); Red Blood Count 3.37 MC/CUMM (3.8-5.5); Red Cell Distribution Width 16.7 % (9.3-17.3); White Blood Count 4.2 T/CUMM (4-12)
[2022-01-20 05:42] LABS: Calcium 7.4 MG/DL (8.5-10.1); Osmolality,Calculated 279.7 MOS/KG (273-304); Potassium 3.4 MMOL/L (3.5-5.1)
[2022-01-20 05:52] LABS: Band Neutrophils 2 % (0-10); Eosinophils 2 % (0-10); Hypochromia 1+; Lymphocytes 10 % (20-55); Microcytosis 1+; Platelet Estimate Adequate; Segmented Neutrophils 67 % (50-85); Total Cells Counted 100
[2022-01-20] MEDS: INSULIN LISPRO 100 UNIT/ML SUBCUT SCH ×4 (07:11→20:25)
[2022-01-20] MEDS: MULTIVITAMIN (CENTRUM) TABLET PO SCH (09:21)
[2022-01-20] MEDS: lisinopriL 10 MG TABLET PO SCH (09:26)
[2022-01-20] MEDS: METOPROLOL TARTRATE 25 MG TABLET PO SCH (09:26)
[2022-01-20] MEDS: MONTELUKAST 10 MG TABLET PO SCH (09:26)
[2022-01-20] MEDS: FUROSEMIDE 40 MG TABLET PO SCH (09:26)
[2022-01-20] MEDS: SPIRONOLACTONE 100 MG TABLET PO SCH (09:26)
[2022-01-20] MEDS: PANTOPRAZOLE 40 MG VIAL IV SCH (09:32)
[2022-01-20] MEDS: FERRIC GLUCONATE COMPLEX 125 MG in SODIUM CHLORIDE 0.9% 100 ML IV SCH (09:33)
[2022-01-20] MEDS: POTASSIUM CHLORIDE RIDER 10 MEQ/100 ML PREMIX IV SCH ×2 (11:39→12:40)
[2022-01-20] MEDS ORDERED: POTASSIUM CHLORIDE RIDER 10 MEQ/100 ML PREMIX IV ONE (15:00)
[2022-01-20] MEDS: HEPARIN 5,000 UNIT/1 ML VIAL SUBCUT SCH (15:10)
[2022-01-20] MEDS ORDERED: DEXTROSE 10% 1,000 ML IV PRN (17:00)
[2022-01-20] MEDS ORDERED: ZINC/COPPER/MANGANESE/SELENIUM 1 ML, MULTIVITAMIN INJ 10 ML in AMINO ACIDS/DEXT/LYTES 5... IV SCH (17:00)
[2022-01-21] MEDS: HEPARIN 5,000 UNIT/1 ML VIAL SUBCUT SCH (06:08)
[2022-01-21] MEDS: LACTATED RINGERS 1,000 ML IV SCH ×2 (06:29→11:57)
[2022-01-21 06:47] LABS: Basophils % 0.7 % (0.0-0.8); Eosinophils # 0.1 10*3/uL (0.0-0.87); Eosinophils % 2.9 % (0.00-10.9); Hematocrit 28.1 VOL% (42.0-52.0); Hemoglobin 8.8 GM/DL (14.0-18.0); Immature Granulocytes % 1.2 %; Immature Granulocytes Absolute 0.05 #; Lymphocytes # 0.9 10*3/uL (1.4-4.0); Lymphocytes % 20.7 % (21.2-54.2); Mean Corpuscular HGB Conc 31.3 GM/DL (32-36); Mean Corpuscular Volume 81.9 FL (87-102); Mean Platelet Volume 8.6 FL (9.6-12.0); Monocytes % 23.3 % (1.7-12.7); Neutrophils % 51.2 % (38.7-73.9); Platelet Count 152 T/CUMM (130-400); Red Blood Count 3.43 MC/CUMM (3.8-5.5); Red Cell Distribution Width 16.9 % (9.3-17.3); White Blood Count 4.2 T/CUMM (4-12)
[2022-01-21 07:14] LABS: Calcium 7.5 MG/DL (8.5-10.1); Potassium 3.4 MMOL/L (3.5-5.1)
[2022-01-21 07:20] LABS: Osmolality,Calculated 276.7 MOS/KG (273-304)
[2022-01-21] MEDS: INSULIN LISPRO 100 UNIT/ML SUBCUT SCH ×4 (07:40→20:59)
[2022-01-21] MEDS: MULTIVITAMIN (CENTRUM) TABLET PO SCH (09:26)
[2022-01-21] MEDS: POTASSIUM CHLORIDE RIDER 10 MEQ/100 ML PREMIX IV SCH ×2 (09:30→11:57)
[2022-01-21] MEDS: PANTOPRAZOLE 40 MG VIAL IV SCH (09:30)
[2022-01-21] MEDS: lisinopriL 10 MG TABLET PO SCH (09:31)
[2022-01-21] MEDS: METOPROLOL TARTRATE 25 MG TABLET PO SCH (09:31)
[2022-01-21] MEDS: SPIRONOLACTONE 100 MG TABLET PO SCH (09:31)
[2022-01-21] MEDS: MONTELUKAST 10 MG TABLET PO SCH (09:31)
[2022-01-21] MEDS: FUROSEMIDE 40 MG TABLET PO SCH (09:31)
[2022-01-21 10:31] LABS: Band Neutrophils 1 % (0-10); Eosinophils 1 % (0-10); Hypochromia Slight; Lymphocytes 15 % (20-55); Microcytosis Slight; Platelet Estimate Adequate; Polychromasia Slight; Segmented Neutrophils 58 % (50-85); Total Cells Counted 100
[2022-01-21] MEDS: FERRIC GLUCONATE COMPLEX 125 MG in SODIUM CHLORIDE 0.9% 100 ML IV SCH (13:23)
[2022-01-21] MEDS: FAT EMULSION 20% 250 ML IV SCH (15:45)
[2022-01-21] MEDS: ZINC/COPPER/MANGANESE/SELENIUM 1 ML, MULTIVITAMIN INJ 10 ML in AMINO ACIDS/DEXT/LYTES 5... IV SCH (17:40)
[2022-01-22 06:35] LABS: Basophils % 0.3 % (0.0-0.8); Eosinophils # 0.1 10*3/uL (0.0-0.87); Eosinophils % 3.8 % (0.00-10.9); Hematocrit 26.1 VOL% (42.0-52.0); Hemoglobin 8.2 GM/DL (14.0-18.0); Immature Granulocytes % 3.2 %; Immature Granulocytes Absolute 0.12 #; Lymphocytes % 28.1 % (21.2-54.2); Mean Corpuscular HGB Conc 31.4 GM/DL (32-36); Mean Corpuscular Volume 82.3 FL (87-102); Mean Platelet Volume 8.4 FL (9.6-12.0); Monocytes % 18.6 % (1.7-12.7); Platelet Count 126 T/CUMM (130-400); Red Blood Count 3.17 MC/CUMM (3.8-5.5); Red Cell Distribution Width 16.9 % (9.3-17.3); White Blood Count 3.7 T/CUMM (4-12)
[2022-01-22 06:50] LABS: Calcium 7.5 MG/DL (8.5-10.1); Osmolality,Calculated 275.7 MOS/KG (273-304); Potassium 3.4 MMOL/L (3.5-5.1)
[2022-01-22] MEDS: INSULIN LISPRO 100 UNIT/ML SUBCUT SCH ×4 (07:47→20:55)
[2022-01-22 08:44] LABS: Band Neutrophils 1 % (0-10); Eosinophils 2 % (0-10); Lymphocytes 18 % (20-55); Metamyelocytes 1 %; Myelocytes 1 %; Segmented Neutrophils 58 % (50-85); Total Cells Counted 100
[2022-01-22 08:45] LABS: Anisocytosis Slight; Atypical Lymphocytes Few; Hypochromia 1+; Platelet Estimate Adequate; Polychromasia Slight; Target Cells Few; Tear Drop Cells Few
[2022-01-22] MEDS: lisinopriL 10 MG TABLET PO SCH (09:04)
[2022-01-22] MEDS: SPIRONOLACTONE 100 MG TABLET PO SCH (09:04)
[2022-01-22] MEDS: METOPROLOL TARTRATE 25 MG TABLET PO SCH (09:04)
[2022-01-22] MEDS: MONTELUKAST 10 MG TABLET PO SCH (09:04)
[2022-01-22] MEDS: FERRIC GLUCONATE COMPLEX 125 MG in SODIUM CHLORIDE 0.9% 100 ML IV SCH (09:05)
[2022-01-22] MEDS: LACTATED RINGERS 1,000 ML IV SCH (09:05)
[2022-01-22] MEDS: FUROSEMIDE 40 MG TABLET PO SCH (09:05)
[2022-01-22] MEDS: MULTIVITAMIN (CENTRUM) TABLET PO SCH (09:05)
[2022-01-22] MEDS: PANTOPRAZOLE 40 MG VIAL IV SCH (09:06)
[2022-01-22] MEDS: POTASSIUM CHLORIDE RIDER 10 MEQ/100 ML PREMIX IV SCH ×3 (12:03→15:28)
[2022-01-22] MEDS: ACETAMINOPHEN 325 MG TABLET PO PRN (12:03)
[2022-01-22] MEDS: FAT EMULSION 20% 250 ML IV SCH (15:29)
[2022-01-22] MEDS: ZINC/COPPER/MANGANESE/SELENIUM 1 ML, MULTIVITAMIN INJ 10 ML in AMINO ACIDS/DEXT/LYTES 5... IV SCH (17:45)
[2022-01-23 07:17] LABS: Basophils % 0.6 % (0.0-0.8); Eosinophils # 0.2 10*3/uL (0.0-0.87); Eosinophils % 3.3 % (0.00-10.9); Hemoglobin 8.7 GM/DL (14.0-18.0); Immature Granulocytes % 4.8 %; Immature Granulocytes Absolute 0.23 #; Lymphocytes # 1.2 10*3/uL (1.4-4.0); Mean Corpuscular HGB Conc 31.1 GM/DL (32-36); Mean Corpuscular Volume 83.3 FL (87-102); Mean Platelet Volume 9.2 FL (9.6-12.0); Monocytes % 14.2 % (1.7-12.7); Neutrophils % 53.1 % (38.7-73.9); Platelet Count 144 T/CUMM (130-400); Red Blood Count 3.36 MC/CUMM (3.8-5.5); Red Cell Distribution Width 17.2 % (9.3-17.3); White Blood Count 4.8 T/CUMM (4-12)
[2022-01-23 07:24] LABS: Calcium 7.7 MG/DL (8.5-10.1); Osmolality,Calculated 266.2 MOS/KG (273-304); Potassium 3.7 MMOL/L (3.5-5.1)
[2022-01-23] MEDS: INSULIN LISPRO 100 UNIT/ML SUBCUT SCH ×2 (08:04→12:08)
[2022-01-23] MEDS: LACTATED RINGERS 1,000 ML IV SCH ×2 (08:15→15:16)
[2022-01-23] MEDS: FERRIC GLUCONATE COMPLEX 125 MG in SODIUM CHLORIDE 0.9% 100 ML IV SCH (09:11)
[2022-01-23] MEDS: SPIRONOLACTONE 100 MG TABLET PO SCH (09:11)
[2022-01-23] MEDS: MONTELUKAST 10 MG TABLET PO SCH (09:12)
[2022-01-23] MEDS: lisinopriL 10 MG TABLET PO SCH (09:12)
[2022-01-23] MEDS: METOPROLOL TARTRATE 25 MG TABLET PO SCH (09:12)
[2022-01-23] MEDS: FUROSEMIDE 40 MG TABLET PO SCH (09:12)
[2022-01-23] MEDS: MULTIVITAMIN (CENTRUM) TABLET PO SCH (09:12)
[2022-01-23] MEDS: PANTOPRAZOLE 40 MG VIAL IV SCH (09:21)
[2022-01-23] MEDS ORDERED: DEXTROSE 50% 25 GM/50 ML VIAL IV PRN (10:55)
[2022-01-23] MEDS ORDERED: GLUCAGON 1 MG VIAL IM PRN (10:55)
[2022-01-23 12:00] VITALS: BP 114/61
[2022-01-23] MEDS: FAT EMULSION 20% 250 ML IV SCH (16:13)
[2022-01-23] MEDS: ACETAMINOPHEN 325 MG TABLET PO PRN (16:23)
== END 2022-01-23 16:46 | disposition home or self-care (01) | DRG 354 ==
LOC: EDUNIT# → N.ED 06:02 → SUATTDRO 09:03 → N.EDINP 09:03 → N.3E 09:45
PROVIDERS: ADMIT Internal Medicine; ATTEND Internal Medicine